=== PATIENT | male | born 1975 | race Caucasian/White ===

== ENCOUNTER 2017-03-19 17:43 | Emergency (ER) | payer BC ==
[~2017-03-19] VITALS: Ht 182.9 cm; Wt 100.0 kg
[~2017-03-19 17:43] MED LIST: ADDERALL20 MG PO; ANUSOL-HC21 GM PR; DOCUSATE CALCI240 MG PO; LIDOCAINE HCL20 ML MM; MOTRIN800 MG PO; PERCOCET 5/31 TABLET PO; SENNA CONCENTR8.6 MG PO; SKELAXIN800 MG PO
[2017-03-19] MEDS ORDERED: [UNRECOGNIZED DRUG - REMARK] (20:22)
[2017-03-19 20:40] VITALS: BP 120/81
== END 2017-03-19 20:41 | disposition home or self-care (01) ==
LOC: EME 17:43
DX: M25.512 Pain in left shoulder (principal); Z91.81 History of falling
CPT/HCPCS: 99281; 99283